=== PATIENT | female | born 1985 | race Caucasian/White ===

== ENCOUNTER 2020-11-16 13:50 | Emergency (ER) | payer BC, OTHER ==
[~2020-11-16] VITALS: Ht 170.2 cm; Wt 64.3 kg
[~2020-11-16 13:50] MED LIST: CHOL100046 PO; DOCU-28 PO; EPOE10006 SUBCUT; IRON1CAP13 PO; OLME5TAB3 PO
[2020-11-16 14:14] VITALS: BP 142/100
[2020-11-16 15:19] LABS: URINE HCG NEGATIVE (NEG)
[2020-11-16 15:23] LABS: BASOPHILS # (AUTO) 0.1 X10'3 (0-0.2); BASOPHILS % (AUTO) 0.7 % (0-1); EOSINOPHILS % (AUTO) 0.5 % (0-6); HEMATOCRIT 39.4 % (35.0-45.0); HEMOGLOBIN 12.8 g/dl (12.0-16.0); LYMPHOCYTES # (AUTO) 0.8 X10'3 (1.1-4.8); LYMPHOCYTES % (AUTO) 8.7 % (21-51); MEAN CORPUSCULAR HEMOGLOBIN 27.4 PG (27.0-31.0); MEAN CORPUSCULAR HGB CONC 32.4 g/dL (33.0-36.5); MEAN CORPUSCULAR VOLUME 84.6 FL (78-98); MEAN PLATELET VOLUME 6.8 FL (7.4-10.4); MONOCYTES # (AUTO) 0.6 X10'3 (0-0.9); MONOCYTES % (AUTO) 6.4 % (2-12); NEUTROPHILS # (AUTO) 7.4 X10'3 (1.8-7.7); NEUTROPHILS % (AUTO) 83.7 % (42-75); PLATELET COUNT 336 X10'3 (140-440); RED BLOOD COUNT 4.65 X10'6 (4.20-5.60); RED CELL DISTRIBUTION WIDTH 13.8 % (11.5-14.5); WHITE BLOOD COUNT 8.8 X10'3 (4.5-11.0)
[2020-11-16 15:26] LABS: CLARITY,URINE SLIGHTLY CLOUDY (Clear); COLOR,URINE STRAW (Yellow); GLUCOSE, URINE NEGATIVE (Neg); KETONES,URINE NEGATIVE (Neg); LEUKOCYTE ESTERASE ,URINE TRACE (Neg); NITRITES, URINE NEGATIVE (Neg); OCCULT BLOOD,URINE TRACE-INTACT (Neg); PROTEIN,URINE NEGATIVE (Neg); UA COLLECTION TYPE CLN CATCH MIDSTREAM; UROBILINOGEN,URINE 0.2 E.U/dL (0.2-1.0)
[2020-11-16 15:28] LABS: ALANINE AMINOTRANSFERASE 23 U/L (12-78); ALBUMIN 4.3 G/DL (3.4-5.0); ALBUMIN/GLOBULIN RATIO 1.3 (1.1-1.5); ALKALINE PHOSPHATASE 55 IU/L (46-116); ANION GAP 16 (8-16); ASPARTATE AMINO TRANSFERASE 16 U/L (10-37); BILIRUBIN,TOTAL 0.5 MG/DL (0.1-1.0); BLOOD UREA NITROGEN 12 MG/DL (7-18); BUN/CREATININE RATIO 11.8 (6.6-38.0); CALCIUM 9.3 MG/DL (8.5-10.1); CHLORIDE 100 MMOL/L (99-107); CREATININE 1.02 MG/DL (0.40-0.90); GLUCOSE 96 MG/DL (70-104); LIPASE 585 U/L (73-393); POTASSIUM 3.3 MMOL/L (3.5-5.1); SODIUM 140 MMOL/L (135-145); TOTAL CARBON DIOXIDE 24.5 MMOL/L (24-32); TOTAL PROTEIN 7.6 G/DL (6.4-8.2); eGFR 63 ML/MIN
[2020-11-16 15:33] LABS: SQUAMOUS EPITHELIAL CELL,UR MANY /LPF (FEW)
[2020-11-16 15:34] LABS: BACTERIA,URINE FEW /HPF (Neg); RBC,URINE 0-2 /HPF (0-2); WBC,URINE 0-4 /HPF (0-4)
--- NOTE | 2020-11-16 15:39 | NUR ---
LAB REJECTED FOR CULTURE. Addendum: 11/16/20 at 1540 by DEE DEE URINE THAT WAS SENT TO THE LAB WAS REJECTED FOR CULTURE.
[2020-11-16] MEDS ORDERED: ondansetron/PF 4mg/2ml inj IV ONE (17:15)
[2020-11-16] MEDS ORDERED: morphine 10mg/ml inj. IV ONE (17:15)
[2020-11-16] MEDS ORDERED: normal saline 1000ml 1,000 ML IV ONE (17:15)
[2020-11-16] MEDS ORDERED: iohexol 300mg/ml 100ml inj. ONE (17:19)
[2020-11-16] MEDS ORDERED: ONDA4TAB12 PO (18:17)
== END 2020-11-16 19:24 | disposition home or self-care (01) ==
LOC: ER 13:51
DX: R10.84 Generalized abdominal pain (principal); R11.2 Nausea with vomiting, unspecified; R51.9 Headache, unspecified; R05 Cough; Z79.899 Other long term (current) drug therapy
CPT/HCPCS: 36415; 74177; 80053; 81001; 81025; 83690; 85025; 96361; 96374; 99285; J2405; J7030; Q9967